=== PATIENT | female | born 1965 | race Hispanic/Latino ===

== ENCOUNTER 2018-06-03 08:23 | Outpatient (CLI) | payer OTHER ==
--- NOTE | 2018-06-03 10:30 | CT ---
CT ABDOMEN WITH AND WIHTOUT IV CONTRAST CT PELVIS WITH AND WIHTOUT IV CONTRAST: DATE: 06/03/2018. HISTORY: Microscopic hematuria. COMPARISON: None available. FINDINGS: There are subcentimeter too small to characterize hypodense lesions seen within the superior pole rig ht kidney as well as in the inferior pole left kidney. No enhancing renal mass is seen. The ureters are difficult to visualize bilaterally due to multiple adjacent unopacified structures, but there ar e no suspicious calcifications to suggest a ureteral calculus along the course of either ureter. No renal calculus is seen. The visualized opacified renal collecting system and segmentally visualized ureters demonstrate no obvious filling defect. However, portions of each ureter are not completely o pacified. There is nonspecific minimal pelvocaliectasis. Again, no overt hydronephrosis is present. The visualized lung bases, liver, spleen, pancreas, bilateral adrenal glands, abdominal aorta, opacif ied bowel, and incompletely distended urinary bladder demonstrate a normal CT appearance. The appendix is visualized and normal in caliber. No free fluid, fluid collection or lymphadenopathy is seen in the abdomen or pelvis. Osseous structures appear intact. IMPRESSION: 1. Subcentimeter too small to characterize hypodense lesions in each kidney. No enhancing renal mas s is seen bilaterally. 2. No overt hydronephrosis, and no renal or definite ureteral calculus is seen bilaterally. 3. Uterus is either small or surgically absent. POS: [facility]
== END 2018-06-03 08:24 | disposition home or self-care (01) ==
LOC: BICCT 08:23
PROVIDERS: ATTEND Family Medicine
DX: R31.29 Other microscopic hematuria (principal); R93.421 Abnormal radiologic findings on diagnostic imaging of right kidney; R93.422 Abnormal radiologic findings on diagnostic imaging of left kidney
CPT/HCPCS: 74178